=== PATIENT | male | born 1960 | race Caucasian/White ===

== ENCOUNTER → 2021-03-06 | Outpatient (CLI) | payer OTHER ==
[~2021-03-06] MED LIST: ASPIRIN CHEWABL81 MG PO; BACTRIM DS TAB1 EACH PO; CLOPIDOGREL75 MG PO; DAKIN'S473 M1 MC; ELAVIL 25 MG TA25 MG PO; KEFLEX CAP 500500 MG PO; LEVAQUIN500 MG PO; LEVAQUIN750 MG PO; LODINE CAP 300300 MG PO; LOPRESSOR 25 MG25 MG PO; LORTAB 7.5-3251 EACH PO; NORVASC 5 MG TAB5 MG PO; PEPCID20 MG PO; PRAVACHOL20 MG PO; SILVADENE CREAM20 GM TOP; TRESIBA FL100 UNIT/1 SQ; VENLAFAXINE HC150 MG PO; VENTOLIN HFA 66.7 GM INH; VIBRAMYCIN100 MG PO; XARELTO2.5 MG PO; ZANAFLEX4 MG PO
== END ==
LOC: CT 09:08
DX: I70.202 Unspecified atherosclerosis of native arteries of extremities, left leg (principal); L97.929 Non-pressure chronic ulcer of unspecified part of left lower leg with unspecified severity
CPT/HCPCS: 36415; 75635; 82565; 84520; Q9967